=== PATIENT | male | born 1945 | race Hispanic/Latino ===

== ENCOUNTER 2022-05-18 16:50 | Emergency (ER) | payer OTHER ==
[2022-05-18 18:33] LABS: SARS-CoV-2 NAA Rapid Test Not Detected (NotDetected)
[2022-05-18 20:22] LABS: #Eosinphils 0.1 10x3/uL (0.0-0.5); %Basophils 0.4 % (0.0-2.0); %Eosinophils 0.5 % (0.0-6.0); %Lymphocytes 8.2 % (18.0-47.0); %Monocytes 8.8 % (0.0-10.0); %Neutrophils 81.8 % (40.0-75.0); Hemoglobin 9.9 g/dL (13.5-17.5); Mean Corpuscular HGB CONC 33.2 g/dL (32.0-36.0); Mean Corpuscular Hemoglobin 25.1 pg (27.0-33.0); Mean Corpuscular Volume 75.6 fl (81.2-95.1); Mean Platelet Volume 8.2 fl (7.4-10.4); Platelet Count 463 10x3/uL (150-450); RBC Distribution Width 16.3 % (11.5-14.5); Red Blood Cell (RBC) Count 3.94 10x6/uL (4.32-5.72)
[2022-05-18 20:35] LABS: ALT (SGPT) 17 U/L (8-55); AST (SGOT) 19 U/L (5-34); Albumin 3.9 g/dL (3.4-4.8); Alkaline Phosphatase 101 U/L (40-110); Anion Gap 16 mmol/L (10-20); BUN (Urea Nitrogen) 26 mg/dL (8.4-25.7); Bilirubin, Total 0.4 mg/dL (0.2-1.2); Calc. Creatinine Clearance 0 mL/min (70-130); Calcium 9.1 mg/dL (7.8-10.44); Carbon Dioxide 18 mmol/L (23-31); Chloride 94 mmol/L (98-107); Estimated GFR 53; Globulin 3.6 g/dL (2.4-3.5); Glucose 168 mg/dL (83-110); Potassium 4.6 mmol/L (3.5-5.1); Protein, Total 7.5 g/dL (5.8-8.1); Sodium 123 mmol/L (136-145)
[2022-05-18] MEDS ORDERED: Heparin 5,000 UNITS/ML VIAL ONE (20:38)
[2022-05-18] MEDS ORDERED: Heparin 25,000 units/D5W 500 ML ONE (20:39)
[2022-05-18] MEDS ORDERED: Cefepime 2 GM VIAL ONE (20:39)
[2022-05-18] MEDS ORDERED: Vancomycin 1.5 GRAM/300 ML BAG 1.5 GM in Premix Bag 1 BAG IVPB ONE (23:00)
[2022-05-18] MEDS ORDERED: Morphine 4 MG/ML VIAL ONE (23:08)
[2022-05-18] MEDS ORDERED: Ondansetron PF 4 MG/2 ML Vial ONE (23:08)
== END 2022-05-19 02:15 | disposition short-term general hospital (02) ==
LOC: CSHERS 16:50
DX: E11.52 Type 2 diabetes mellitus with diabetic peripheral angiopathy with gangrene (principal); I96 Gangrene, not elsewhere classified; I77.1 Stricture of artery; I25.2 Old myocardial infarction; I25.10 Atherosclerotic heart disease of native coronary artery without angina pectoris; I10 Essential (primary) hypertension; Z20.822 Contact with and (suspected) exposure to COVID-19
CPT/HCPCS: 36415; 80053; 83605; 85025; 87040; 93923; 96365; 96366; 96368; 96375; 96376; J0692; J1644; J2270; J2405; J3370; U0002